=== PATIENT | male | born 1945 | race Caucasian/White ===

== ENCOUNTER 2020-12-14 20:56 | Emergency (ER) | payer OTHER ==
[~2020-12-14] VITALS: Ht 182.9 cm; Wt 90.7 kg
--- NOTE | 2020-12-14 21:03 | NUR ---
PT [id number] LACERATION TO LT EYEBROW S/P TRIP AND FALL, DENIES LOC, PT NOT ON BLOOD THINNERS. PT [id number], VSS, RESPIRATIONS EVEN AND UNLABORED. PT CONNECTED TO THE MONITOR AND POX
--- NOTE | 2020-12-14 21:04 | NUR ---
DR GARCIA AT BEDSIDE
--- NOTE | 2020-12-14 21:11 | NUR ---
PT TAKEN TO RADIOLOGY FOR CT
--- NOTE | 2020-12-14 21:18 | NUR ---
PT BACK FROM RADIOLOGY
[2020-12-14] MEDS ORDERED: BACI/NEOM/POLY B OINT PKT 1 UDPKT PACKET TP ONE (21:30)
[2020-12-14] MEDS ORDERED: TDAP [DIPH/PERTUSSIS/TET] 0.5 ML VIAL IM ONE ×2 (21:30→21:33)
--- NOTE | 2020-12-14 21:45 | NUR ---
Patient discharged to home in stable condition. Written and verbal after care instructions given. Patient verbalizes understanding of instruction.pt. ambulatory with a steady gait
[2020-12-14 21:47] VITALS: BP 148/71
== END 2020-12-14 21:47 | disposition home or self-care (01) ==
LOC: ER 20:58
DX: S01.112A Laceration without foreign body of left eyelid and periocular area, initial encounter (principal); R51.9 Headache, unspecified; E11.9 Type 2 diabetes mellitus without complications; Z85.51 Personal history of malignant neoplasm of bladder; W01.0XXA Fall on same level from slipping, tripping and stumbling without subsequent striking against object, initial encounter; Y93.89 Activity, other specified; Y92.89 Other specified places as the place of occurrence of the external cause; Y99.8 Other external cause status
CPT/HCPCS: 70450-TC; 90715